=== PATIENT | female | born 1945 | race African-American/Black ===

== ENCOUNTER 2017-03-24 17:21 | Inpatient (IN) | payer MEDICARE, OTHER ==
--- NOTE | 2017-03-24 17:45 | ED Physician Chart ---
ED Chief Complaint/HPI - Patient Information Date Seen:: 03/24/17 Time Seen:: 17:35 Chief Complaint:: AMS History of Present Illness:: pt presents with AMS and a report of abnormal lab values takened today; no report of trauma, H/As, S/T, neck pain, C/P, SOB, Abd. Pain, A/N/V/D/C, fever, chills, or urinary s/s Allergies:: Allergies Allergy/AdvReac Type Severity Reaction Status Date / Time No Known Allergies Allergy Verified 02/15/17 21:51 Vitals:: Vital Signs - 8 hr 03/24/17 17:34 Temp 97.6 F HR 82 RR 16 BP 108/57 O2 Sat % 100 Historian:: Patient, EMS Review:: Nurse's Note Reviewed, Old Chart Reviewed, EMS run form Reviewed ED Review of Systems - Review of Systems General/Constitutional: No fever, No chills, No weight loss, No weakness, No diaphoresis, No edema, No loss of appetite Skin: No skin lesions, No rash, No bruising Head: No headache, No light-headedness Eyes: No loss of vision, No pain, No diplopia ENT: No earache, No nasal drainage, No sore throat, No tinnitus Neck: No neck pain, No swelling, No thyromegaly, No stiffness, No mass noted Cardio Vascular: No chest pain, No palpitations, No PND, No orthopnea, No edema Pulmonary: No SOB, No cough, No sputum, No wheezing GI: No nausea, No vomiting, No diarrhea, No pain, No melena, No hematochezia, No constipation, No hematemesis G/U: No dysuria, No frequency, No hematuria, No nacturia Color Technician: No vaginal discharge, No abnormal vaginal bleed, No contraction Musculoskeletal: No bone or joint pain, No back pain, No muscle pain Endocrine: Polyuria, Polydipsia Psychiatric: No prior psych history, No depression, No anxiety, No suicidal ideation, No homicidal ideation, No auditory hallucination, No visual hallucination Hematopoietic: No bruising, No lymphadenopathy Allergic/Immuno: No urticaria, No angioedema Neurological: No syncope, No focal symptoms, No weakness, No paresthesia, No headache, No seizure, No dizziness, No confusion, No vertigo ED Past Medical History - Past Medical History Obtainable: Yes Past Medical History: HTN, DM, Dyslipidemia Family History: Diabetes Melitus, HTN Social History: Non Smoker, No Alcohol, No Drug Use, Single, Care Facility Surgical History: other (BKA; PICC Line Insertion) Psychiatricy History: None Medication: Reviewed Family Medical History - Family Member Mother History Unknown: Yes ED Physical Exam - Physical Examination General/Constitutional: Awake, Well-developed, well-nourished, Alert, No distress, GCS 15, Non-toxic appearing, Ambulatory Head: Atraumatic Eyes: Lids, conjuctiva normal, PERRL, EOMI Skin: Nl inspection, No rash, No skin lesions, No ecchymosis, No lymphadenopathy Other Skin comments:: Poor Turgor with dry MM ENMT: External ears, nose nl, Nasal exam nl, Lips, teeth, gums nl Neck: Nontender, Full ROM w/o pain, No JVD, No nuchal rigidity, No bruit, No mass, No stridor Respiratory: Nl effort/Exclusion, Clear to Auscultation, No Wheeze/Rhonchi/Rales Cardio Vascular: No murmur, gallop, rubs, NL S1 S2, Carotid/Femoral/Distal pulses equal bilaterally Other Cardio Vascular comments:: Irregular Irregular Rhythm GI: No tenderness/rebounding/guarding, No organomegaly, No hernia, Normal BS's, Nondistended, No mass/bruits, No McBurney tenderness : No CVA tenderness Extremities: No tenderness or effusion, Full ROM, normal strength in all extremities, No edema, Normal digits & nails Neuro/Psych: Alert/oriented, DTR's symmetric, Normal sensory exam, Normal motor strength, Judgement/insight normal, Mood normal, Normal gait, No focal deficits Misc: Normal back, No paraspinal tenderness ED Labs/Radiology/EKG Results - Radiology Results Comments:: CXR: CM - EKG Interpretations EKG Time:: 18:56 Rate & Rhythm: 116; Atrial Fibrillation Comments:: LVH; T-Wave Inversions ED Septic Shock - . Is Septic Shock (SBP<90, OR Lactate>4 mmol\L) present?: No - <6hrs of presentation: Vital Signs: Vital Signs - 8 hr 03/24/17 17:34 Temp 97.6 F HR 82 RR 16 BP 108/57 O2 Sat % 100
[2017-03-24] MEDS ORDERED: Sodium Chloride 0.9% 1,000 ML IV ONE ×3 (17:46→19:58)
[2017-03-24] MEDS ORDERED: Albuterol/Ipratropium Neb 3 ML AERS HHN ONE ×2 (19:34→19:41)
[2017-03-24 19:36] LABS: % BASOPHILS 0.8 % (0.0-2.0); % EOSINOPHILS 3.5 % (0.0-5.0); % LYMPHOCYTES 27.3 % (20.0-50.0); % MONOCYTES 9.6 % (2.0-10.0); % NEUTROPHILS 58.8 % (40.0-80.0); BASOPHILE ABSOLUTE 0.1 Th/cumm (0-0.2); EOSINOPHILE ABSOLUTE 0.3 Th/cmm (0.1-0.4); MEAN CELL VOLUME 87.2 fl (81-100); MEAN CORPUSCULAR HEMOGLOBIN 27.9 pg (27.0-31.0); MEAN PLATELET VOLUME 7.9 fl; MONOCYTE ABSOLUTE 0.7 Th/cmm (0.3-1.0); NEUTROPHILE ABSOLUTE 4.4 Th/cmm (1.8-8.0); RED BLOOD COUNT 4.48 Mil/cmm (3.80-5.20); RED CELL DISTRIBUTION WIDTH 17.7 % (11.5-20.0); WHITE BLOOD COUNT 7.5 Th/cmm (4.8-10.8)
[2017-03-24 19:46] LABS: HEMOGLOBIN 12.5 gm/dL (12-16); PLATELET COUNT 247 Th/cmm (150-400)
[2017-03-24 19:50] LABS: INR 2.15 (0.5-1.4); PROTHROMBIN TIME (TEST) 23.3 SECONDS (9.5-11.5)
[2017-03-24 19:53] LABS: ALB/GLOB RATIO 0.7 (1.0-1.8); ALBUMIN 3.1 gm/dL (3.7-5.3); ANION GAP 18.8 (7.0-16.0); BILIRUBIN,TOTAL 0.4 mg/dL (0.3-1.0); CALCIUM SERUM 9.1 mg/dL (8.6-10.3); CARBON DIOXIDE 18.8 mEq/L (21.0-31.0); CREATININE - SERUM 2.4 mg/dL (0.6-1.2); GFR AFRICAN-AMERICAN 25.7 ml/min (>90); GFR NON AFRICAN-AMERICAN 21.3 ml/min; POTASSIUM SERUM 4.6 mEq/L (3.5-5.1); TOTAL PROTEIN,SERUM 7.3 gm/dL (6.0-8.3)
[2017-03-24] MEDS ORDERED: Morphine Sulfate 2 mg/mL 1mL Syr IVP PRN (20:40)
[2017-03-24] MEDS ORDERED: Dextrose 50% 50 mL Abboject IVP PRN (20:40)
[2017-03-24] MEDS ORDERED: Potassium Chloride 40 MEQ, Lidocaine 1% 20mL Vial 25 MG in Sodium Chloride 0.9% 250 ML IV PRN (20:40)
[2017-03-24] MEDS ORDERED: Mag Sulfate 2gm/50mL Premix 2 GM/50 ML BAG IV PRN (20:40)
[2017-03-24] MEDS ORDERED: Sodium Chloride 0.9% 1,000 ML IV SCH (20:45)
[2017-03-24] MEDS: INSULIN ASPART SLIDING SCALE 100 UNITS/ML UNIT SUBQ SCH (23:31)
[2017-03-25 03:26] VITALS: BP 113/86
[2017-03-25 05:41] LABS: % BASOPHILS 0.3 % (0.0-2.0); % EOSINOPHILS 3.2 % (0.0-5.0); % LYMPHOCYTES 36.7 % (20.0-50.0); % MONOCYTES 14.1 % (2.0-10.0); % NEUTROPHILS 45.7 % (40.0-80.0); EOSINOPHILE ABSOLUTE 0.4 Th/cmm (0.1-0.4); HEMOGLOBIN 10.5 gm/dL (12-16); LYMPHOCYTE ABSOLUTE 4.2 Th/cmm (1.5-3.0); MEAN CELL VOLUME 84.9 fl (81-100); MEAN CORPUSCULAR HEMOGLOBIN 28.4 pg (27.0-31.0); MEAN CORPUSCULAR HGB CONC 33.4 pg (28.0-36.0); MEAN PLATELET VOLUME 8.1 fl; MONOCYTE ABSOLUTE 1.6 Th/cmm (0.3-1.0); NEUTROPHILE ABSOLUTE 5.3 Th/cmm (1.8-8.0); PLATELET COUNT 248 Th/cmm (150-400); RED BLOOD COUNT 3.69 Mil/cmm (3.80-5.20); RED CELL DISTRIBUTION WIDTH 17.8 % (11.5-20.0)
[2017-03-25 05:42] LABS: WHITE BLOOD COUNT 11.5 Th/cmm (4.8-10.8)
[2017-03-25 05:43] LABS: HEMATOCRIT 31.3 % (41.0-60)
[2017-03-25 05:51] LABS: ANION GAP 16.1 (7.0-16.0); CALCIUM SERUM 8.6 mg/dL (8.6-10.3); CARBON DIOXIDE 18.3 mEq/L (21.0-31.0); CREATININE - SERUM 2.2 mg/dL (0.6-1.2); GFR AFRICAN-AMERICAN 28.5 ml/min (>90); GFR NON AFRICAN-AMERICAN 23.5 ml/min; POTASSIUM SERUM 4.4 mEq/L (3.5-5.1)
[2017-03-25 05:59] LABS: URINE MICROSCOPIC INDICATED? YES; URINE SOURCE FOLEY PORT
[2017-03-25 06:00] LABS: URINE BILIRUBIN NEGATIVE (NEGATIVE); URINE BLOOD TRACE (NEGATIVE); URINE GLUCOSE (UA) NEGATIVE (NEGATIVE); URINE KETONE TRACE mg/dL (NEGATIVE); URINE LEUKOCYTE ESTERASE NEGATIVE (NEGATIVE); URINE NITRATE NEGATIVE (NEGATIVE); URINE PH 5.5 (4.6 - 8.0); URINE PROTEIN 30 mg/dL (NEGATIVE); URINE UROBILINOGEN 0.2 E.U./dL (0.2 - 1.0)
[2017-03-25 06:10] LABS: URINE CLARITY HAZY (CLEAR); URINE COLOR YELLOW
[2017-03-25 06:11] LABS: URINE EPITHELIAL CELLS MODERATE /lpf (FEW); URINE WBC 0-2 /hpf (0-5)
[2017-03-25 06:13] LABS: URINE BACTERIA MODERATE /hpf (NONE SEEN)
[2017-03-25] MEDS: INSULIN ASPART SLIDING SCALE 100 UNITS/ML UNIT SUBQ SCH ×3 (06:54→17:14)
--- NOTE | 2017-03-25 09:03 | Diagnostic Imaging Report ---
CHEST X-RAY: AP view INDICATION: pain COMPARISON: 02/16/2017 FINDINGS: Left PICC line is in place with tip in SVC. Chronic lung changes are seen with no focal consolidation or effusions. There is evidence of prior median sternotomy. Cardiomegaly is noted. Degenerative changes of the spine are noted. IMPRESSION: Chronic lung changes with no focal consolidation identified. Evidence of prior median sternotomy. Cardiomegaly.
[2017-03-25] MEDS ORDERED: D5-0.9%NS 1,000 ML IV SCH (10:00)
--- NOTE | 2017-03-25 10:19 | History & Physical ---
ADMIT DATE: 03/24/2017 CHIEF COMPLAINT: Acute renal failure. HISTORY OF PRESENT ILLNESS: The patient is a 71-year-old female with history of severe peripheral arterial disease, AFib, coronary artery disease and hypertension and COPD. She has been very depressed lately. She also has history of left AKA, which is not healing. She has had multiple infections and had wound debridements as well. She has poor blood flow. She was sent to the hospital for worsening renal failure. PAST MEDICAL HISTORY: Significant for renal insufficiency, AFib, diabetes, hypertension, COPD, coronary artery disease. SURGICAL HISTORY: Positive for left AKA and cardiac surgery as well. SOCIAL HISTORY: No history of alcohol, tobacco, or drug abuse. FAMILY HISTORY: Noncontributory. ALLERGIES: No known drug allergies. MEDICATIONS: All medication reviewed and reconciled. REVIEW OF SYSTEMS: GENERAL: Positive for recent fatigue, but no fevers or chills. HEENT: No recent head trauma, change in vision, taste, hearing, or smell. Oral: According to the daughter, she has been having difficulty swallowing. SKIN: No recent rashes. PSYCHIATRIC: No history of psychosis, hallucination. MUSCULOSKELETAL: She is bedbound. NEUROLOGIC: She has history of stroke. CARDIOVASCULAR: She has history of coronary artery disease and peripheral arterial disease as well and AFib and hypertension. NEPHROLOGY: She does have history of renal insufficiency, but now her renal function has worsened significantly. MUSCULOSKELETAL: She is bedbound because of a stroke. PHYSICAL EXAMINATION: VITAL SIGNS: Temperature 97.1 degrees, heart rate is 7 , respirations 18, blood pressure 154/84. Currently, no pain. GENERAL: No acute distress. She is awake, but she appears depressed. HEENT: No acute issues. NECK: Trachea in midline. Oral cavity is clear. CARDIOVASCULAR: She is in AFib. ABDOMEN: Nontender, nondistended. SKIN: No rash. EXTREMITIES: Left BKA stump wound dressing is intact. NEUROLOGIC: She is bedbound because of the stroke. MUSCULOSKELETAL: Decreased muscle strength upper and lower extremities. GENITOURINARY: She has increased urinary frequency. PSYCHIATRIC: No psychosis or hallucinations. She appears depressed. LABORATORY DATA: UA is positive for bacteria and wbc's and protein as well. The white count is 11.5, hemoglobin is 10.5, platelet count 248,000. Sodium 138, potassium 4.4, chloride 108, bicarbonate 18.3, BUN 48, creatinine 2.2, glucose 127. Chest x-ray is negative. ASSESSMENT/PLAN: 1. Sepsis. 2. Urinary tract infection. 3. Vasomotor nephropathy. 4. Atrial fibrillation. 5. Diabetes mellitus. 6. Diabetic neuropathy. 7. Diabetic nephropathy. 8. Hypertension. 9. Chronic obstructive pulmonary disease. 10. Dysphagia. 11. Peripheral arterial disease. 12. Coronary artery disease. PLAN: Dr. Amarjit Granados has been consulted for Nephrology and Dr. Mcduffie for Cardiology. The patient has been on warfarin. INR is therapeutic. She has history of ischemic and hemorrhagic stroke, but after a certain time, the specialist had put her on anticoagulation. She has severe peripheral arterial disease and coronary artery disease. Her wound is not healing in the left lower extremity as well. She holds a poor prognosis. She also has dysphagia. Swallow eval has been ordered. I had a very long discussion with the daughter and she wants to have a hospice evaluation and proceed with hospice. Right now, she wants to continue all treatment until they sign up with hospice. I have already contacted the hospice company to come talk to her. JOB# [id number]
[2017-03-25 13:36] LABS: A1C % 7.8 % (4.0-6.0)
[2017-03-25] MEDS ORDERED: Ipratropium Neb 0.5 mg/2.5 mL UD HHN SCH (19:00)
[2017-03-25] MEDS ORDERED: Metoprolol tartrate 1 mg/ml 5mL Amp IV SCH (20:30)
--- NOTE | 2017-03-26 11:25 | Consultation ---
DATE OF CONSULTATION: 03/25/[address] Jovel. HISTORY OF PRESENT ILLNESS: This is a 71-year-old female patient who has left BKA wound, which is nonhealing and the patient was brought to the Emergency Room. The patient has complained of palpitation. PAST MEDICAL HISTORY: Atrial fibrillation, peripheral vascular disease with left below-knee amputation, the wound nonhealing; chronic obstructive pulmonary disease, mild congestive heart failure, protein calorie malnutrition, osteoporosis, chronic kidney disease stage 3, hypertension, dementia. FAMILY HISTORY: Unremarkable. SOCIAL HISTORY: No history of smoking, alcohol abuse. ALLERGIES: No known allergies. PHYSICAL EXAMINATION: VITAL SIGNS: Blood pressure 140/80, pulse 70, respirations 20. HEAD: Normocephalic. No lumps or bumps. EYES: Pupils equal, reactive to light. Fundi show AV nicking, sclerae white, conjunctivae pink. NECK: Carotid 2+. Normal upstroke. JVD flat. Thyroid not palpable. Lymph nodes not palpable. CHEST: Shows increased AP diameter. No kyphosis, scoliosis. LUNGS: Bilateral bronchovesicular breath sounds. HEART: PMI fifth intercostal space with lateral to midclavicular line. S1, S2. No S3, S4. S1 irregular. Systolic murmur, grade 2/6, lower left sternal border without radiation. ABDOMEN: Soft. Liver and spleen not palpable. No organomegaly. Bowel sounds active. NEUROLOGIC: No focal neurological deficit. EXTREMITIES: Peripheral pulses 2+. No pedal edema. CLINICAL IMPRESSION: 1. Atrial fibrillation, rate controlled. 2. Peripheral vascular disease with left below-knee amputation wound not healing. 3. Mild congestive heart failure. 4. Protein calorie malnutrition. 5. Osteoporosis. 6. Chronic kidney disease stage 3. 7. Hypertension. 8. Dementia. 9. Chronic obstructive pulmonary disease. PLAN: The patient to continue present care. The patient's family wants hospice, so we will have hospice evaluation. JOB# [id number]
--- NOTE | 2017-03-26 11:34 | Consultation ---
DATE OF CONSULTATION: 03/25/2017 REASON FOR CONSULTATION: Acute kidney injury. HISTORY OF PRESENT ILLNESS: The patient is a 71-year-old female resident of [facility] who was admitted 03/24/2017 after presenting to the ER with altered mental status. She was subsequently admitted for further evaluation. Of note, she has old CVA, peripheral arterial disease, atrial fibrillation, coronary artery disease, hypertension, COPD, left AKA. The patient's sister states that since her stroke in November, she has had multiple complications and her status has been on the decline ever since. She since her admission, there has been 300 mL of urine last night and 400 mL this morning. Her BUN and creatinine are noted to be elevated. Creatinine was 2.4 on admit and 2.2 today. There does not appear to be any recent NSAID use or herbal medication use or IV contrast administration. PAST MEDICAL HISTORY: 1. Old cerebrovascular accident. 2. Atrial fibrillation. 3. 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 4. Left AKA status. 5. Hypertension. 6. Chronic obstructive pulmonary disease. 7. Dysphagia. 8. Coronary artery disease. 9. Peripheral arterial disease. PAST SURGICAL HISTORY: 1. Left AKA. 2. Cardiac surgery. SOCIAL HISTORY: No tobacco, alcohol or illicit drug use. The patient has a supportive sister and daughter. The patient is a resident of [facility]. FAMILY HISTORY: No history of kidney disease. ALLERGIES: No known allergies. CURRENT MEDICATIONS: Include Tylenol, Colace, gabapentin, hydralazine, sliding scale, Keppra, magnesium oxide, morphine, Zofran. REVIEW OF SYSTEMS: Unable to obtain. PHYSICAL EXAMINATION: VITAL SIGNS: Temperature 98.8, heart rate 121, blood pressure 136/78, respirations 18, oxygen saturation 100%. GENERAL: The patient is encephalopathic, nonverbal, not responding. CARDIOVASCULAR: S1, S2 irregularly irregular, tachycardic. LUNGS: Scattered rhonchi, crackles. EXTREMITIES: No edema. Left ___. DIAGNOSTIC DATA: White blood cell count is 11.5 up from 7.5, platelet count is 248. Hemoglobin is 10.5, sodium 138, potassium 4.8, CO2 is 18, BUN 48 down from 51, creatinine is 2.2, down from 2.4. Lactic acid is 1.78 down from 2.53. Urinalysis shows 1+ protein, moderate bacteria. ASSESSMENT AND RECOMMENDATIONS: The patient is a 71-year-old female with: 1. Nonoliguric acute kidney injury likely secondary to ATN with a component of underlying chronic kidney disease, probably secondary to hypertensive nephrosclerosis and diabetic glomerulosclerosis, stable. No acute indication for renal replacement therapy at this time. Given the patient's multiple comorbidities and overall seemingly poor prognosis, I do not know if she is a good candidate for renal replacement therapy. Family is actually considering hospice. 2. Type 2 diabetes mellitus with renal, neurological and vascular disease manifestations, stable. Continue insulin coverage. 3. Atrial fibrillation, stable. Continue management per Cardiology. She is not noted to be on any anticoagulation at this time. Follow Cardiology recommendations. 4. Possible urinary tract infection, stable. Monitor. 5. Hypertension, stable. Continue p.r.n. medications. 6. Encephalopathy, metabolic versus CVA, hemodynamically stable. Per patient's sister at bedside and per nursing, hospice evaluation is being pursued. Thank you, Dr. Jovel, for allowing me to participate in the care of the patient. I will continue to follow. If the patient remains in-house and the family wishes to pursue further management. If the decision is to pursue hospice, the renal service will sign off. Plan of care was discussed with the patient's sister and the RN. JOB# [id number]
--- NOTE | 2017-03-26 19:09 | Discharge Summary ---
DATE OF DISCHARGE: 03/26/2017 CAUSE OF ADMISSION: The patient is a 71-year-old female with history of severe peripheral arterial disease, AFib, coronary artery disease, hypertension and COPD. She has been very depressed lately. She also has history of left AKA, which is not healing. She has had multiple infections and wound debridement. She has poor blood flow. She was sent to the hospital for worsening renal failure. ADMITTING DIAGNOSES: 1. Sepsis. 2. Urinary tract infection. 3. Vasomotor nephropathy. 4. Atrial fibrillation. 5. Diabetes mellitus. 6. Diabetic neuropathy. 7. Diabetic nephropathy. 8. Hypertension. 9. Chronic obstructive pulmonary disease. 10. Dysphagia. 11. Peripheral arterial disease. 12. Coronary artery disease. 13. Failure to thrive. DISCHARGE DIAGNOSES: 1. Sepsis. 2. Urinary tract infection. 3. Vasomotor nephropathy. 4. Atrial fibrillation. 5. Diabetes mellitus. 6. Diabetic neuropathy. 7. Diabetic nephropathy. 8. Hypertension. 9. Chronic obstructive pulmonary disease. 10. Dysphagia. 11. Peripheral arterial disease. 12. Coronary artery disease. 13. Failure to thrive. SUMMARY OF HOSPITAL COURSE: Dr. Granados was consulted for Nephrology and Dr. Mcduffie for Cardiology. She has been on warfarin. INR was therapeutic. She has history of ischemic and hemorrhagic stroke, but after certain time the specialist had put her on anticoagulation. She had a severe peripheral arterial disease and coronary artery disease. The wound has not been healing. She has a poor prognosis. She also had dysphagia. Swallow evaluation was done, which she failed. I had a long discussion with the daughter who actually brought up hospice evaluation herself. She stated that she is aware of the poor prognosis and her mother did not wish to be going into the hospital and she is actually verbalized that she just wants to be comfortable, so hospice evaluation was done and [facility]. PROGNOSIS: Poor. CONSULTS: As mentioned above, Dr. Granados and Dr. Mcduffie. DISCHARGE MEDICATIONS: All medication reviewed and reconciled. Physical exam and labs as charted. [facility]# [id number]
== END 2017-03-25 21:25 | disposition home or self-care (01) | DRG 871 ==
LOC: ER 17:21 → TELE 20:20
PROVIDERS: ADMIT General Practice; ATTEND General Practice
DX: A41.9 Sepsis, unspecified organism (principal); N17.0 Acute kidney failure with tubular necrosis; G93.40 Encephalopathy, unspecified; E46 Unspecified protein-calorie malnutrition; E11.21 Type 2 diabetes mellitus with diabetic nephropathy; I48.91 Unspecified atrial fibrillation; E11.40 Type 2 diabetes mellitus with diabetic neuropathy, unspecified; R13.10 Dysphagia, unspecified; I13.0 Hypertensive heart and chronic kidney disease with heart failure and stage 1 through stage 4 chronic kidney disease, or unspecified chronic kidney disease; E11.51 Type 2 diabetes mellitus with diabetic peripheral angiopathy without gangrene; I50.9 Heart failure, unspecified; N39.0 Urinary tract infection, site not specified; J44.9 Chronic obstructive pulmonary disease, unspecified; I25.10 Atherosclerotic heart disease of native coronary artery without angina pectoris; Z89.612 Acquired absence of left leg above knee; R62.7 Adult failure to thrive; E11.22 Type 2 diabetes mellitus with diabetic chronic kidney disease; N18.3 Chronic kidney disease, stage 3 (moderate); F03.90 Unspecified dementia, unspecified severity, without behavioral disturbance, psychotic disturbance, mood disturbance, and anxiety; M81.0 Age-related osteoporosis without current pathological fracture; Z68.21 Body mass index [BMI] 21.0-21.9, adult; Z86.73 Personal history of transient ischemic attack (TIA), and cerebral infarction without residual deficits; Z79.899 Other long term (current) drug therapy; Z79.4 Long term (current) use of insulin
CPT/HCPCS: 36415-UA; 71010-TC; 80048-TC; 80053-TC; 80061-TC; 81001-TC; 82550-TC; 82948-90; 83036-90; 83605; 83735-TC; 83880-TC; 84443-TC; 84484-TC; 85025-TC; 85610-TC; 85730-TC; 87086-90; 90779; 90799; 93005; 94640; 94760; J1644; J1815; J2001; J2270; J3475; J3480; J7030; J7042; X3401; Z7610